=== PATIENT | male | born 1970 | race African-American/Black ===

== ENCOUNTER 2016-11-13 05:28 | Day surgery (SDC) | payer MEDICAID ==
[~2016-11-13] VITALS: Ht 165.1 cm; Wt 65.8 kg
[~2016-11-13 05:28] MED LIST: NORCO 7.5/325 T1 TA1 PO; PERCOCET 10/3251 TA1 PO
[2016-11-13 13:52] VITALS: BP 120/82; Ht 165.1 cm; Wt 65.8 kg
--- NOTE | 2016-11-13 18:40 | NUR ---
1745 IV DC WITH CATHER TIP INTACT
--- NOTE | 2016-12-18 09:40 | HP ---
PATIENT: KAREN LONG MEDICAL RECORD: [id number] ACCOUNT: [id number] LOCATION:[facility] : 66 ADMISSION DATE: 11/13/16 HISTORY AND PHYSICAL EXAMINATION The patient has an umbilical hernia, which is reducible, but is painful. It is very small. I am going to plan to close it without mesh. The patient also desires screening colonoscopy. He has had no abdominal pain other than at the hernia. No rectal bleeding. There is a history and physical on the chart; however, it is . The history and physical examination is unchanged from his visit to see me in the office. The risks, possible complications and alternatives to procedure were explained to the patient. He elects to proceed. TRANSINT:[id number] Voice Confirmation ID: [id number] DOCUMENT ID: [id number] JULIA CASTANEDA MD at 0940 CC: MAYE VALVERDE DO [id number] DICTATION DATE: 11/13/16 1518 LOGGING ENGINEER: 11/13/16 1635 [facility] 11/13/16 [address] [place] [address]
--- NOTE | 2016-12-18 09:40 | OP ---
PATIENT NAME: KAREN LONG MEDICAL RECORD: [id number] :66 LOCATION:D.[facility] ADMISSION DATE: SURGEON: JERZY CASTANEDA MD DATE OF OPERATION: 11/13/2016 PREOPERATIVE DIAGNOSES: 1. Symptomatic umbilical hernia. 2. Desires screening colonoscopy. POSTOPERATIVE DIAGNOSES: 1. Symptomatic umbilical hernia. 2. Desires screening colonoscopy. 3. Three sessile colon polyps ranging in size up to 1.1 cm. One of these polyps, the proximal most was semi-pedunculated. PROCEDURE: 1. Open umbilical hernia repair without mesh. 2. Total colonoscopy to cecum. 3. Hot biopsy forceps polypectomies times 3. SURGEON: Jerzy Castaneda MD HORSE RACE STARTER: None. BLOOD LOSS: Minimal. ANESTHESIA: General. COMPLICATIONS: None. The risks, possible complications and alternatives to procedure were explained to the patient. He elects to proceed. I saw the patient in the holding area. We discussed the planned operative procedure. OPERATIVE COURSE: The patient was conveyed to the operating room electively on 11/13/2016. General anesthesia was induced by the anesthesia staff. The patient was positioned supine. An incision was accomplished within the umbilicus. I dissected down to non-incarcerated adipose tissue. Some of this was excised. I then sharply cleaned the hernia defect from overlying connective tissue. I then performed a bsmi-wcyg-nfvwh type repair utilizing a single horizontal mattress 0 Surgidac suture. I then oversewed this repair with a vtpzdw-xs-wqjse 0 Vicryl suture. The umbilicus was tacked down to the underlying repair with 3-0 Vicryl. The umbilical skin was approximated with multiple interrupted 4-0 Vicryl Rapide sutures. A sterile dressing was applied. The patient was then positioned on the side in a Ellsworth position. A digital rectal examination was performed. It revealed prostate that was without nodules and was not enlarged. A colonoscope was inserted through the anus. It was easily advanced to the cecum. The prep was excellent. I slowly withdrew the endoscope. I irrigated and aspirated extensively. I dragged the folds. The pullback was greater than a 14-minute pullback. I utilized direct imaging as well as narrow band imaging. Three polyps were removed. One of these was a perianal polyp. These were removed utilizing hot biopsy forceps polypectomy OPERATIVE REPORT [id number] LONG,KAREN L technique. I then unretroflexed the scope and removed it under direct vision. I will see the patient in my office in 2-3 weeks. We will review the results of the biopsies at that time. It is very likely that one of these polyps is adenomatous and that the patient will require surveillance colonoscopies in the future. TRANSINT:[id number] Voice Confirmation ID: [id number] DOCUMENT ID: [id number] JERZY CASTANEDA MD at 0940 CC: MAYE VALVERDE DO [id number] DICTATION DATE: 11/13/16 1630 SPLUNK DASHBOARD DEVELOPER: 11/13/16 2342 [facility] 11/13/16 [facility] [address] [place] [address]
== END 2016-11-13 18:10 | disposition home or self-care (01) ==
LOC: D.OPS 05:28 → D.PAN 13:30 → D.OPS 14:30 → D.PAN 14:30 → D.OPS 15:30 → D.PAN 15:30 → D.OPS 18:10
DX: Z12.11 Encounter for screening for malignant neoplasm of colon (principal); D12.5 Benign neoplasm of sigmoid colon; K63.5 Polyp of colon; K62.1 Rectal polyp; K42.9 Umbilical hernia without obstruction or gangrene

== ENCOUNTER → 2016-12-01 14:01 | Outpatient (CLI) | payer MEDICAID ==
[2016-11-13 13:52] VITALS: BMI 24.1
== END | disposition home or self-care (01) ==
LOC: D.MRI 14:00
DX: R22.42 Localized swelling, mass and lump, left lower limb (principal)

== ENCOUNTER 2016-12-23 09:56 | Emergency (ER) | payer MEDICAID ==
[2016-11-13 13:52] VITALS: BMI 24.1
== END 2016-12-23 10:43 | disposition home or self-care (01) ==
LOC: D.ER 09:56
DX: H00.014 Hordeolum externum left upper eyelid (principal)

== ENCOUNTER 2017-01-28 15:00 | Emergency (ER) | payer MEDICAID ==
[2016-11-13 13:52] VITALS: BMI 24.1
[2017-01-28 15:53] LABS: BASOPHILS 0.6 % (0-2); EOSINOPHILS 2.2 % (0-7); HEMATOCRIT 42.4 % (42.0-54.0); IMMATURE GRANULOCYTES 0.2 % (0-5); LYMPHOCYTES 25.2 % (15-50); MCH 32.3 pg (26.0-34.0); MCV 97.7 fL (80.0-100.0); MEAN PLATELET VOLUME 10.3 fL (7.4-10.4); MONOCYTES 9.2 % (2-11); NEUTROPHILS 62.6 % (40-80); PLATELET COUNT 303 10x3/uL (130-400); RBC 4.34 10x6/uL (4.20-6.10); RDW 11.9 % (11.5-14.5); WBC 5.4 10x3/uL (4.8-10.8)
[2017-01-28 16:11] LABS: ALKALINE PHOSPHATASE 69 U/L (46-116); ALT (SGPT) 27 U/L (10-68); BILIRUBIN - TOTAL 0.27 mg/dL (0.2-1.3); CALC OSMOLALITY 279 mosm/kg (275-300); CALCIUM 9.1 mg/dL (8.5-10.1); CARBON DIOXIDE 31.8 mmol/L (21.0-32.0); CHLORIDE - SERUM 105 mmol/L (98-107); CREATININE - SERUM 1.1 mg/dL (0.6-1.3); GLUCOSE 106 mg/dL (74-106); POTASSIUM - SERUM 4.6 mmol/L (3.5-5.1); PROTEIN - SERUM 7.3 g/dL (6.4-8.2); SODIUM 140 mmol/L (136-145); UREA NITROGEN 16 mg/dL (7-18); eGFR NON AFRICAN AMERICAN 75 mL/min (90-120)
== END 2017-01-28 16:43 | disposition left against medical advice (07) ==
LOC: D.ER 15:00
PROVIDERS: Emergency Medicine
DX: R10.30 Lower abdominal pain, unspecified (principal)

== ENCOUNTER → 2017-05-26 15:00 | Outpatient (CLI) | payer MEDICAID ==
[2016-11-13 13:52] VITALS: BMI 24.1
== END | disposition home or self-care (01) ==
LOC: D.MRI 15:00
DX: M25.561 Pain in right knee (principal)

== ENCOUNTER 2017-06-18 07:15 | Day surgery (SDC) | payer MEDICAID ==
[2017-06-18 07:49] VITALS: BP 107/62; BMI 24.1
[2017-06-18] MEDS ORDERED: PERCOCET 7.5/321 TAB PO (09:23)
[2017-06-18] MEDS ORDERED: TORADOL10 MG PO (09:24)
--- NOTE | 2017-06-18 13:08 | NUR ---
1100 IV DC WITH CATHER TIP INTACT
--- NOTE | 2017-06-22 07:05 | OP ---
PATIENT NAME: KAREN DEL REAL MEDICAL RECORD: [id number] :66 LOCATION:[facility] ADMISSION DATE: SURGEON: KEENAN PARADA DO DATE OF OPERATION: 06/18/2017 PREOPERATIVE DIAGNOSIS: Right knee medial meniscal tear. POSTOPERATIVE DIAGNOSIS: Right knee medial meniscal tear. PROCEDURE PERFORMED: Right knee arthroscopy with partial medial meniscectomy. INDICATIONS: Mr. Del Real is a 47-year-old male that has had right knee pain for quite sometime and it has been bothering him while working and it swells on him quite often. This has been going on for months. He had an MRI, which demonstrated a medial meniscal tear in the posterior horn, it was complex. He was seen in my office and consented for surgery. He understood the risks and benefits. SURGEON: Keenan Parada DO MANAGER ENTERPRISE CONTENT MANAGEMENT: Anila Covington advanced nurse practitioner DESCRIPTION OF PROCEDURE: The patient was taken to the operative suite, placed in supine position, given general anesthetic, given 2 grams of Ancef preoperatively. The right knee was prepped and draped in sterile fashion. A time-out was performed and everyone was in agreeance with correct patient, site, and side. Once this was done, the knee was brought into flexed position and the proposed portal sites were injected with 0.25% Marcaine with 1% epinephrine with 4.5 mL in each portal site, the inferior, anterior, medial, and lateral portals. The lateral portal was then established with an 11-blade scalpel and the trocar was entered into the knee. The knee was extended and placed in suprapatellar pouch. The scope was then entered into that. The diagnostic arthroscopy was done. Again, there were no loose bodies in the suprapatellar pouch. Patella seemed to be in good shape with no chondromalacia. The lateral gutter was viewed and no loose bodies were seen. Medial gutter was viewed and no loose bodies. The knee was then flexed and the medial compartment was entered. The medial portal was then established with an 18-gauge spinal needle and an 11-blade scalpel. Probe was entered and the posterior horn of the medial meniscus was probed and seemed to be very loose indicating a tear that was seen on the MRI. An upbiter was then entered into the medial portal and the tear was trimmed back to a stable position and the shaver was used to remove all excess loose bodies and any other fraying that was on the meniscus. Once this was done, the meniscus was probed and seemed to be in stable condition and no longer subluxing, it was not moving. The probe was then entered into the medial portal and the ACL was probed and seen to be very stable and taut. The probe was then placed into the lateral compartment. The knee was in qcquvs-rn-pbon. The lateral meniscus was probed and seen to be very stable, no tears. Once that was done, pictures were taken. The patella was tracking very well in the trochlea. The scope was then placed in suprapatellar pouch. Again, the suction was turned on. Excess fluid was removed from the knee and the scope was removed. The portal sites were then closed with 4-0 Monocryl inverted interrupted fashion, single stitch in each portal. A Steri-Strip was placed over with Adaptic, 4 x 4, ABD, Webril, and Quincy wrap on the knee and then a stocking up to the knee was placed on the patient. Blood loss was minimal. He was awakened and taken to recovery in stable condition. OPERATIVE REPORT [id number] KAREN DEL REAL TRANSINT:[id number] Voice Confirmation ID: [id number] DOCUMENT ID: [id number] KEENAN PARADA DO at 0705 CC: [id number] DICTATION DATE: 06/18/17929 HORSE IDENTIFIER: 06/18/17 1249 [facility] 06/18/[address] [address]
== END 2017-06-18 11:30 | disposition home or self-care (01) ==
LOC: D.OPS 07:15 → D.PAN 08:20 → D.OPS 08:30
DX: S83.241A Other tear of medial meniscus, current injury, right knee, initial encounter (principal); F17.200 Nicotine dependence, unspecified, uncomplicated; Z01.812 Encounter for preprocedural laboratory examination

== ENCOUNTER 2017-08-12 21:54 | Emergency (ER) | payer MEDICAID ==
[~2017-08-12 21:54] MED LIST changes: +PERCOCET 7.5/321 TAB PO; +TORADOL10 MG PO
== END 2017-08-12 22:48 | disposition home or self-care (01) ==
LOC: D.ER 21:54
DX: M25.561 Pain in right knee (principal); Z98.890 Other specified postprocedural states; F17.200 Nicotine dependence, unspecified, uncomplicated

== ENCOUNTER 2017-08-23 09:58 | Emergency (ER) | payer MEDICAID | END 2017-08-23 11:24 | disposition home or self-care (01) | LOC: D.ER 09:58 | DX: M25.561 Pain in right knee (principal); Z98.890 Other specified postprocedural states ==

== ENCOUNTER 2017-11-11 12:41 | Emergency (ER) | payer MEDICAID ==
[2017-11-11 13:20] LABS: BASOPHILS 0.6 % (0-2); EOSINOPHILS 4.1 % (0-7); HEMATOCRIT 40.7 % (42.0-54.0); HEMOGLOBIN 13.6 g/dL (13.5-17.5); IMMATURE GRANULOCYTES 0.2 % (0-5); MCH 32.2 pg (26.0-34.0); MCHC 33.4 g/dL (31.0-37.0); MCV 96.2 fL (80.0-100.0); MEAN PLATELET VOLUME 10.2 fL (7.4-10.4); NEUTROPHILS 50.1 % (40-80); PLATELET COUNT 276 10x3/uL (130-400); RBC 4.23 10x6/uL (4.20-6.10); RDW 11.9 % (11.5-14.5); WBC 4.7 10x3/uL (4.8-10.8)
[2017-11-11 13:35] LABS: ALBUMIN 3.7 g/dL (3.4-5.0); BILIRUBIN - TOTAL 0.3 mg/dL (0.2-1.3); CALCIUM 8.4 mg/dL (8.5-10.1); CARBON DIOXIDE 25.9 mmol/L (21.0-32.0); CREATININE - SERUM 1.2 mg/dL (0.6-1.3); POTASSIUM - SERUM 3.9 mmol/L (3.5-5.1)
[2017-11-11 13:37] LABS: APPEARANCE CLEAR (CLEAR); BILIRUBIN NEGATIVE (NEGATIVE); COLOR YELLOW (YELLOW); GLUCOSE NEGATIVE (NEGATIVE); KETONE NEGATIVE (NEGATIVE); NITRITE NEGATIVE (NEGATIVE); PROTEIN NEGATIVE (NEGATIVE); SPECIFIC GRAVITY 1.015 (1.005-1.020); UROBILINOGEN NORMAL (NORMAL)
== END 2017-11-11 15:39 | disposition home or self-care (01) ==
LOC: D.ER 12:41
PROVIDERS: Emergency Medicine
DX: R10.9 Unspecified abdominal pain (principal); F17.200 Nicotine dependence, unspecified, uncomplicated

== ENCOUNTER 2017-12-21 05:27 | Day surgery (SDC) | payer MEDICAID ==
[~2017-12-21] VITALS: Ht 165.1 cm; Wt 68.2 kg
--- NOTE | ~2017-12-21 | OP ---
PATIENT NAME: KAREN LONG MEDICAL RECORD: [id number] :66 LOCATION:D.OPS ADMISSION DATE: SURGEON: JERZY CASTANEDA MD DATE OF OPERATION: 12/21/2017 PREOPERATIVE DIAGNOSIS: History of colon polyps, in need of surveillance colonoscopy. POSTOPERATIVE DIAGNOSES: History of colon polyps, in need of surveillance colonoscopy with 2 new polyps, sessile, one was a 9 mm polyp and the other was a 1.1 cm polyp. PROCEDURES: 1. Total colonoscopy to cecum. 2. Hot biopsy forceps polypectomies times 1. SURGEON: Jerzy Castaneda MD CHEFS: None. BLOOD LOSS: Minimal. ANESTHESIA: IV sedation. COMPLICATIONS: None. The risks, possible complications and alternatives to procedure were explained to the patient. A consent form was signed. ENDOSCOPIC COURSE: The patient was conveyed to the endoscopy suite electively on 12/21/2017. IV sedation was induced by the anesthesia staff. The patient was placed in the Ellsworth position. A digital rectal examination was performed. A colonoscope was inserted through the anus. It was easily advanced to the cecum. The prep was adequate. I slowly withdrew the endoscope. I dragged the folds. The pullback was greater than a 14-minute pullback. Two polyps were noted and they were adjacent to each other. Both were removed utilizing the hot biopsy forceps polypectomy technique. I then placed both of these polyps in the same container. I withdrew into the rectum. A retroflexed view was obtained in the rectum. It revealed enlarged internal hemorrhoids. I then unretroflexed the scope and removed it under direct vision. I will plan to see the patient in my office in 2-3 weeks to discuss the results of the biopsies. I will plan for his next surveillance colonoscopy to take place in 3 years. TRANSINT:[id number] Voice Confirmation ID: [id number] DOCUMENT ID: [id number] OPERATIVE REPORT [id number] KAREN LONG ROBERT MD at 1518 CC: [id number] DICTATION DATE: 12/21/17 1038 ACLS SPECIALIST: 12/21/17 1052 [facility] 12/21/17 [place] [address]
--- NOTE | ~2017-12-21 | HP ---
PATIENT: KAREN LONG MEDICAL RECORD: [id number] ACCOUNT: [id number] LOCATION:[facility] : 66 ADMISSION DATE: 12/21/17 HISTORY AND PHYSICAL EXAMINATION CHIEF COMPLAINT: Here for colonoscopy. HISTORY OF PRESENT ILLNESS: The patient did a split prep last night. It sounds like he got started kind of late. He has had a history of colon polyps. He is here to undergo a surveillance colonoscopy. ALLERGIES: No known drug allergies. HOME MEDICATIONS: None. SOCIAL HISTORY: Ex-smoker. PAST MEDICAL AND SURGICAL HISTORY: History of colon polyps. REVIEW OF SYSTEMS: Negative for diabetes or thyroid problems. Negative for renal disease or hepatitis. PHYSICAL EXAMINATION: GENERAL: The patient does not appear acutely ill. He does not appear chronically ill. VITAL SIGNS: Reviewed. EARS: External ears appear normal. EYES: Extraocular movements are intact. NECK: Trachea is midline. CHEST: No intercostal retractions. PULMONARY: Nonlabored, no stridor. IMPRESSION: History of colon polyps. PLAN: Surveillance colonoscopy. TRANSINT:[id number] Voice Confirmation ID: [id number] DOCUMENT ID: [id number] JULIA CASTANEDA MD at 1518 CC: MAYE VALVERDE DO [id number] DICTATION DATE: 12/21/17 0846 VICE PRESIDENT RISK MANAGEMENT: 12/21/17 0914 [facility] 12/21/17 [address] [place] [address]
[2017-12-21 06:29] VITALS: Ht 165.1 cm; Wt 68.2 kg
== END 2017-12-21 10:29 | disposition home or self-care (01) ==
LOC: D.OPS 05:27
DX: Z12.11 Encounter for screening for malignant neoplasm of colon (principal); Z86.010 Personal history of colon polyps; K63.5 Polyp of colon; K64.8 Other hemorrhoids; Z01.812 Encounter for preprocedural laboratory examination

== ENCOUNTER 2018-02-22 09:03 | Emergency (ER) | payer MEDICAID ==
[~2018-02-22] VITALS: Ht 165.1 cm; Wt 65.9 kg
[2018-02-22 09:09] VITALS: Ht 165.1 cm; Wt 65.9 kg
[2018-02-22] MEDS ORDERED: EC-NAPROSYN500 MG PO (10:37)
[2018-02-22 11:32] VITALS: BP 105/73
== END 2018-02-22 11:14 | disposition home or self-care (01) ==
LOC: D.ER 09:03
DX: S90.32XA Contusion of left foot, initial encounter (principal); V09.20XA Pedestrian injured in traffic accident involving unspecified motor vehicles, initial encounter; Y93.01 Activity, walking, marching and hiking; Y92.481 Parking lot as the place of occurrence of the external cause; F17.200 Nicotine dependence, unspecified, uncomplicated

== ENCOUNTER 2018-10-26 21:39 | Inpatient (IN) | payer MEDICAID ==
[~2018-10-26] VITALS: Ht 165.1 cm; Wt 59.0 kg
[~2018-10-26 21:39] MED LIST changes: +EC-NAPROSYN500 MG PO
[2018-10-26 22:50] LABS: BASOPHILS 0.3 % (0-2); EOSINOPHILS 0.5 % (0-7); HEMATOCRIT 46.5 % (42.0-54.0); HEMOGLOBIN 16.1 g/dL (13.5-17.5); IMMATURE GRANULOCYTES 0.3 % (0-5); LYMPHOCYTES 19.5 % (15-50); MCH 32.9 pg (26.0-34.0); MCHC 34.6 g/dL (31.0-37.0); MCV 94.9 fL (80.0-100.0); MEAN PLATELET VOLUME 9.5 fL (7.4-10.4); MONOCYTES 8.8 % (2-11); NEUTROPHILS 70.6 % (40-80); WBC 10.1 10x3/uL (4.8-10.8)
[2018-10-26 22:53] LABS: APPEARANCE CLEAR (CLEAR); BILIRUBIN NEGATIVE (NEGATIVE); COLOR YELLOW (YELLOW); GLUCOSE NEGATIVE (NEGATIVE); KETONE SMALL mg/dL (NEGATIVE); NITRITE NEGATIVE (NEGATIVE); PROTEIN NEGATIVE (NEGATIVE); UROBILINOGEN NORMAL (NORMAL)
[2018-10-26 22:55] LABS: PLATELET COUNT 558 10x3/uL (130-400)
[2018-10-26 23:07] LABS: ALBUMIN 4.3 g/dL (3.4-5.0); ALKALINE PHOSPHATASE 94 U/L (46-116); ALT (SGPT) 27 U/L (10-68); BILIRUBIN - TOTAL 0.68 mg/dL (0.2-1.3); CALC OSMOLALITY 287 mosm/kg (275-300); CALCIUM 9.8 mg/dL (8.5-10.1); CARBON DIOXIDE 36.6 mmol/L (21.0-32.0); CHLORIDE - SERUM 95 mmol/L (98-107); CREATININE - SERUM 1.4 mg/dL (0.6-1.3); GLUCOSE 136 mg/dL (74-106); POTASSIUM - SERUM 3.2 mmol/L (3.5-5.1); PROTEIN - SERUM 9.3 g/dL (6.4-8.2); SODIUM 142 mmol/L (136-145); UREA NITROGEN 22 mg/dL (7-18); eGFR NON AFRICAN AMERICAN 57 mL/min (90-120)
[2018-10-26 23:11] LABS: AMYLASE - SERUM 83 U/L (25-115); LIPASE 253 U/L (73-393)
[2018-10-26 23:16] LABS: TROPONIN-I < 0.017 ng/mL (0.000-0.060)
[2018-10-26 23:47] VITALS: BP 133/91
[2018-10-27] VITALS (7 sets, daily range): BP systolic 108–124; BP diastolic 67–89; Ht 165.1 cm; Wt 59.0 kg
[2018-10-27 10:27] LABS: HEMATOCRIT 38.3 % (42.0-54.0); LYMPHOCYTES 18.1 % (15-50); MCH 32.5 pg (26.0-34.0); MCHC 33.9 g/dL (31.0-37.0); MCV 95.8 fL (80.0-100.0); MEAN PLATELET VOLUME 8.8 fL (7.4-10.4); NEUTROPHILS 70.5 % (40-80); RDW 12.2 % (11.5-14.5); WBC 9.9 10x3/uL (4.8-10.8)
[2018-10-27 10:36] LABS: PLATELET COUNT 434 10x3/uL (130-400)
[2018-10-28 03:38] VITALS: BP 111/66
[2018-10-28 06:19] LABS: BASOPHILS 0.4 % (0-2); EOSINOPHILS 2.5 % (0-7); HEMOGLOBIN 10.6 g/dL (13.5-17.5); IMMATURE GRANULOCYTES 0.2 % (0-5); LYMPHOCYTES 30.4 % (15-50); MCH 31.6 pg (26.0-34.0); MCHC 32.1 g/dL (31.0-37.0); MEAN PLATELET VOLUME 9.7 fL (7.4-10.4); MONOCYTES 8.1 % (2-11); NEUTROPHILS 58.4 % (40-80); PLATELET COUNT 387 10x3/uL (130-400); RBC 3.35 10x6/uL (4.20-6.10); RDW 11.9 % (11.5-14.5); WBC 8.1 10x3/uL (4.8-10.8)
[2018-10-28 06:22] LABS: MCV 98.5 fL (80.0-100.0)
[2018-10-28 08:34] VITALS: BP 108/70
[2018-10-28 08:48] LABS: ALKALINE PHOSPHATASE 54 U/L (46-116); CALCIUM 7.7 mg/dL (8.5-10.1); CHLORIDE - SERUM 103 mmol/L (98-107); SODIUM 135 mmol/L (136-145); UREA NITROGEN 19 mg/dL (7-18)
[2018-10-28 08:49] LABS: ALBUMIN 2.6 g/dL (3.4-5.0); ALT (SGPT) 16 U/L (10-68); CALC OSMOLALITY 270 mosm/kg (275-300); CARBON DIOXIDE 23.1 mmol/L (21.0-32.0); CREATININE - SERUM 0.8 mg/dL (0.6-1.3); GLUCOSE 85 mg/dL (74-106); POTASSIUM - SERUM 4.9 mmol/L (3.5-5.1); PROTEIN - SERUM 5.5 g/dL (6.4-8.2); eGFR NON AFRICAN AMERICAN > 90 mL/min (90-120)
[2018-10-28 11:40] VITALS: BP 107/63
[2018-10-28 16:00] VITALS: BP 104/64
[2018-10-28 19:34] VITALS: BP 100/72
[2018-10-28 23:35] VITALS: BP 109/60
[2018-10-29 04:00] VITALS: BP 120/60
[2018-10-29 06:10] LABS: BASOPHILS 0.3 % (0-2); EOSINOPHILS 4.1 % (0-7); HEMATOCRIT 32.5 % (42.0-54.0); HEMOGLOBIN 10.8 g/dL (13.5-17.5); IMMATURE GRANULOCYTES 0.2 % (0-5); MCH 31.8 pg (26.0-34.0); MCHC 33.2 g/dL (31.0-37.0); MCV 95.6 fL (80.0-100.0); MEAN PLATELET VOLUME 9.6 fL (7.4-10.4); MONOCYTES 7.3 % (2-11); NEUTROPHILS 53.1 % (40-80); PLATELET COUNT 393 10x3/uL (130-400); RDW 11.6 % (11.5-14.5); WBC 5.9 10x3/uL (4.8-10.8)
[2018-10-29 06:40] LABS: ALBUMIN 2.6 g/dL (3.4-5.0); ALKALINE PHOSPHATASE 54 U/L (46-116); ALT (SGPT) 16 U/L (10-68); BILIRUBIN - TOTAL 0.34 mg/dL (0.2-1.3); CALC OSMOLALITY 273 mosm/kg (275-300); CALCIUM 8.3 mg/dL (8.5-10.1); CARBON DIOXIDE 26.4 mmol/L (21.0-32.0); CHLORIDE - SERUM 104 mmol/L (98-107); CREATININE - SERUM 0.8 mg/dL (0.6-1.3); GLUCOSE 79 mg/dL (74-106); POTASSIUM - SERUM 4.6 mmol/L (3.5-5.1); PROTEIN - SERUM 6.1 g/dL (6.4-8.2); SODIUM 137 mmol/L (136-145); UREA NITROGEN 15 mg/dL (7-18); eGFR NON AFRICAN AMERICAN > 90 mL/min (90-120)
[2018-10-29 08:39] VITALS: BP 107/66
[2018-10-29 12:00] VITALS: BP 113/67
[2018-10-29 16:00] VITALS: BP 125/78
[2018-10-29 20:00] VITALS: BP 113/74
[2018-10-30] VITALS: BP 105/69
[2018-10-30 04:00] VITALS: BP 100/55
[2018-10-30 05:10] LABS: BASOPHILS 0.4 % (0-2); EOSINOPHILS 3.8 % (0-7); IMMATURE GRANULOCYTES 0.1 % (0-5); LYMPHOCYTES 27.8 % (15-50); MCH 31.7 pg (26.0-34.0); MCHC 33.3 g/dL (31.0-37.0); MCV 95.2 fL (80.0-100.0); MEAN PLATELET VOLUME 9.4 fL (7.4-10.4); MONOCYTES 6.3 % (2-11); NEUTROPHILS 61.6 % (40-80); PLATELET COUNT 362 10x3/uL (130-400); RBC 3.15 10x6/uL (4.20-6.10); RDW 11.6 % (11.5-14.5); WBC 7.2 10x3/uL (4.8-10.8)
[2018-10-30 05:24] LABS: ALBUMIN 2.6 g/dL (3.4-5.0); ALKALINE PHOSPHATASE 49 U/L (46-116); ALT (SGPT) 14 U/L (10-68); BILIRUBIN - TOTAL 0.33 mg/dL (0.2-1.3); CALC OSMOLALITY 274 mosm/kg (275-300); CARBON DIOXIDE 29.5 mmol/L (21.0-32.0); CHLORIDE - SERUM 102 mmol/L (98-107); CREATININE - SERUM 0.9 mg/dL (0.6-1.3); GLUCOSE 92 mg/dL (74-106); POTASSIUM - SERUM 4.6 mmol/L (3.5-5.1); PROTEIN - SERUM 6.1 g/dL (6.4-8.2); SODIUM 136 mmol/L (136-145); eGFR NON AFRICAN AMERICAN > 90 mL/min (90-120)
[2018-10-30 05:25] LABS: UREA NITROGEN 20 mg/dL (7-18)
[2018-10-30 07:55] VITALS: BP 100/65
[2018-10-30 13:00] VITALS: BP 101/70
[2018-10-30 16:00] VITALS: BP 104/74
[2018-10-30 20:00] VITALS: BP 107/74
[2018-10-31 04:00] VITALS: BP 96/65
[2018-10-31 04:08] LABS: BASOPHILS 0.5 % (0-2); HEMATOCRIT 29.4 % (42.0-54.0); LYMPHOCYTES 36.2 % (15-50); MCH 32.1 pg (26.0-34.0); MCV 94.2 fL (80.0-100.0); MEAN PLATELET VOLUME 9.5 fL (7.4-10.4); MONOCYTES 9.9 % (2-11); NEUTROPHILS 47.4 % (40-80); PLATELET COUNT 349 10x3/uL (130-400); RBC 3.12 10x6/uL (4.20-6.10); RDW 11.5 % (11.5-14.5); WBC 5.6 10x3/uL (4.8-10.8)
[2018-10-31 04:39] LABS: ALBUMIN 2.6 g/dL (3.4-5.0); ALKALINE PHOSPHATASE 47 U/L (46-116); ALT (SGPT) 15 U/L (10-68); BILIRUBIN - TOTAL 0.57 mg/dL (0.2-1.3); CALC OSMOLALITY 273 mosm/kg (275-300); CALCIUM 8.2 mg/dL (8.5-10.1); CARBON DIOXIDE 27.1 mmol/L (21.0-32.0); CHLORIDE - SERUM 103 mmol/L (98-107); CREATININE - SERUM 0.8 mg/dL (0.6-1.3); GLUCOSE 99 mg/dL (74-106); POTASSIUM - SERUM 4.5 mmol/L (3.5-5.1); SODIUM 137 mmol/L (136-145); eGFR NON AFRICAN AMERICAN > 90 mL/min (90-120)
[2018-10-31 04:44] LABS: UREA NITROGEN 13 mg/dL (7-18)
[2018-10-31 08:04] VITALS: BP 103/71
[2018-10-31 11:55] VITALS: BP 94/61
--- NOTE | 2018-10-31 12:13 | MORECARE ---
CASE MANAGEMENT DISCHARGE SUMMARY PATIENT: KAREN LONG UNIT: [id number] ADM DATE: 10/27/18 AGE: 48 : 66 SEX: M ROOM/BED: D.2209 AUTHOR: MARIAJOSE SWIFT PHYSICIAN: REFERRING PHYSICIAN: TYLER HANSEN MD DATE OF SERVICE: 10/31/18 Discharge Plan Patient Name: KAREN LONG Facility: [facility]:[place] : 1970 Planned Disposition: Home Anticipated Discharge Date: Discharge Date: Expected LOS: Initial Reviewer: [email or web address] Initial Review Date: 10/27/2018 Generated: 10/31/18 1:12 pm DCPIA - Discharge Planning Initial Assessment Updated by [email or web address]: Gina Dumont on 10/31/18 12:12 pm * Is the patient Alert and Oriented? Yes * How many steps to enter\exit or inside your home? * PCP TIFFANIEO * Pharmacy [facility] * Preadmission Environment Home with Family * ADLs Independent * Equipment None * List name and contact numbers for known caregivers / representatives who currently or will assist patient after discharge: ALPHONSO (GIRLFRIEND) [phone] * Verbal permission to speak to the caregivers and representatives has been obtained from the patient. N/A * Community resources currently utilized None * Additional services required to return to the preadmission environment? No * Can the patient safely return to the preadmission environment? Yes * Has this patient been hospitalized within the prior 30 days at any hospital? Yes Patient Name: KAREN LONG Page 19344 at 1213 All edits/amendments must be made on the electronic document DICTATION DATE: 10/31/18 121 ACCOUNTS PAYABLE ACCOUNTANT: CONNER 10/31/18 1212 RPT#: [id number] DC DATE: STATUS: ADM IN [facility] [address] [place] [address] END OF REPORT
--- NOTE | 2018-10-31 12:19 | MORECARE ---
CASE MANAGEMENT DISCHARGE SUMMARY PATIENT: KAREN LONG UNIT: [id number] ADM DATE: 10/27/18 AGE: 48 : 66 SEX: M ROOM/BED: D.2209 AUTHOR: JENIFFERDOC PHYSICIAN: REFERRING PHYSICIAN: TYLER HANSEN MD DATE OF SERVICE: 10/31/18 Discharge Plan Patient Name: KAREN LONG Facility: [facility]:[place] : 1970 Planned Disposition: Home Anticipated Discharge Date: Discharge Date: Expected LOS: Initial Reviewer: [email or web address] Initial Review Date: 10/27/2018 Generated: 10/31/18 1:19 pm Comments DCP- Discharge Planning Updated by [email or web address]: Gina Dumont on 10/31/18 11:[address] Patient Name: KAREN LONG Admission Status: ER Accout number: [id number] Admission Date: 10-27-2018 : 1970 Admission Diagnosis:UNSPECIFIED ABDOMINAL PAIN Attending: TYLER HANSEN Current LOS: 4 Anticipated DC Date: Planned Disposition: Home Primary Insurance: MEDICAID [place] Discharge Planning Comments: CM met with patient to assess discharge planning needs. He stated that he lives with a friend where he is independent with his care at home. His girlfriend, Daya will be the one to take him home when he is discharged. He denies any DME or home health needs at this time. His home is safe to return at discharge. CM will continue to follow and assist with DC planning as needed Design Release Engineer: Gina Dumont DCPIA - Discharge Planning Initial Assessment Updated by [email or web address]: Gina Dumont on 10/31/18 12:12 pm * Is the patient Alert and Oriented? Yes * How many steps to enter\exit or inside your home? * PCP TIFFANIEO * Pharmacy [facility] [address] * Preadmission Environment Home with Family * ADLs Independent * Equipment None * List name and contact numbers for known caregivers / representatives who currently or will assist patient after discharge: ALPHONSO (GIRLFRIEND) [phone] * Verbal permission to speak to the caregivers and representatives has been obtained from the patient. N/A * Community resources currently utilized None * Additional services required to return to the preadmission environment? No * Can the patient safely return to the preadmission environment? Yes * Has this patient been hospitalized within the prior 30 days at any hospital? Yes Last DP export: 10/31/18 11:12 a Patient Name: KAREN LONG Page 45232 at 1219 All edits/amendments must be made on the electronic document DICTATION DATE: 10/31/181217 FIELD ATTENDANT: CONNER 10/31/181217 RPT#: [id number] DC DATE: STATUS: ADM IN [facility] [address] [place] [address] END OF REPORT
[2018-10-31 15:45] VITALS: BP 99/59
[2018-10-31 20:00] VITALS: BP 108/62
[2018-11-01 04:00] VITALS: BP 108/61
[2018-11-01 04:42] LABS: BASOPHILS 0.7 % (0-2); EOSINOPHILS 7.2 % (0-7); HEMATOCRIT 27.1 % (42.0-54.0); HEMOGLOBIN 9.2 g/dL (13.5-17.5); IMMATURE GRANULOCYTES 0.2 % (0-5); MCH 32.1 pg (26.0-34.0); MCHC 33.9 g/dL (31.0-37.0); MCV 94.4 fL (80.0-100.0); MEAN PLATELET VOLUME 9.6 fL (7.4-10.4); MONOCYTES 9.9 % (2-11); PLATELET COUNT 355 10x3/uL (130-400); RBC 2.87 10x6/uL (4.20-6.10); RDW 11.5 % (11.5-14.5); WBC 5.6 10x3/uL (4.8-10.8)
[2018-11-01 05:13] LABS: ALBUMIN 2.4 g/dL (3.4-5.0); ALKALINE PHOSPHATASE 55 U/L (46-116); BILIRUBIN - TOTAL 0.14 mg/dL (0.2-1.3); CALC OSMOLALITY 273 mosm/kg (275-300); CALCIUM 7.6 mg/dL (8.5-10.1); CARBON DIOXIDE 23.8 mmol/L (21.0-32.0); CHLORIDE - SERUM 102 mmol/L (98-107); GLUCOSE 132 mg/dL (74-106); PROTEIN - SERUM 5.7 g/dL (6.4-8.2); SODIUM 136 mmol/L (136-145); UREA NITROGEN 13 mg/dL (7-18); eGFR NON AFRICAN AMERICAN 84 mL/min (90-120)
[2018-11-01 05:16] LABS: ALT (SGPT) 33 U/L (10-68); POTASSIUM - SERUM 3.6 mmol/L (3.5-5.1)
[2018-11-01 09:15] VITALS: BP 109/61
[2018-11-01 13:37] VITALS: BP 118/74
[2018-11-01 20:00] VITALS: BP 94/63
[2018-11-02] VITALS: BP 93/58
[2018-11-02 04:00] VITALS: BP 124/64
[2018-11-02 05:01] LABS: BASOPHILS 0.7 % (0-2); EOSINOPHILS 5.4 % (0-7); HEMATOCRIT 25.6 % (42.0-54.0); HEMOGLOBIN 8.5 g/dL (13.5-17.5); IMMATURE GRANULOCYTES 0.3 % (0-5); LYMPHOCYTES 37.3 % (15-50); MCH 31.5 pg (26.0-34.0); MCHC 33.2 g/dL (31.0-37.0); MCV 94.8 fL (80.0-100.0); MEAN PLATELET VOLUME 9.6 fL (7.4-10.4); NEUTROPHILS 47.3 % (40-80); PLATELET COUNT 355 10x3/uL (130-400); RDW 11.7 % (11.5-14.5); WBC 5.8 10x3/uL (4.8-10.8)
[2018-11-02 05:23] LABS: ALBUMIN 2.4 g/dL (3.4-5.0); ALKALINE PHOSPHATASE 50 U/L (46-116); BILIRUBIN - TOTAL 0.24 mg/dL (0.2-1.3); CALCIUM 7.7 mg/dL (8.5-10.1); CARBON DIOXIDE 25.4 mmol/L (21.0-32.0); CHLORIDE - SERUM 104 mmol/L (98-107); CREATININE - SERUM 0.9 mg/dL (0.6-1.3); GLUCOSE 106 mg/dL (74-106); POTASSIUM - SERUM 3.8 mmol/L (3.5-5.1); PROTEIN - SERUM 5.5 g/dL (6.4-8.2); SODIUM 138 mmol/L (136-145); eGFR NON AFRICAN AMERICAN > 90 mL/min (90-120)
[2018-11-02 05:26] LABS: ALT (SGPT) 24 U/L (10-68); CALC OSMOLALITY 277 mosm/kg (275-300); UREA NITROGEN 17 mg/dL (7-18)
[2018-11-02 10:25] VITALS: BP 103/55
[2018-11-02] MEDS ORDERED: PEPCID AC20 MG PO (11:02)
--- NOTE | 2018-11-02 11:25 | MORECARE ---
CASE MANAGEMENT DISCHARGE SUMMARY PATIENT: KAREN LONG UNIT: [id number] ADM DATE: 10/27/18 AGE: 48 : 66 SEX: M ROOM/BED: D.2209 AUTHOR: MARIAJOSE SWIFT PHYSICIAN: REFERRING PHYSICIAN: TYLER HANSEN MD DATE OF SERVICE: 11/02/18 Discharge Plan Patient Name: KAREN LONG Facility: [facility]:[place] : 1970 Planned Disposition: Home Anticipated Discharge Date: Discharge Date: Expected LOS: Initial Reviewer: [email or web address] Initial Review Date: 10/27/2018 Generated: 11/02/18 12:25 pm Comments DCP- Discharge Planning Updated by [email or web address]: Gina Dumont on 11/02/18 10:[address] Patient Name: KAREN LONG Encounter No: [id number] : 1970 Primary Insurance: MEDICAID [place] Anticipated DC Date: Planned Disposition: Home External Planned Provider: : DCP follow-up note: Patient and family in agreement with discharge plan. No changes to plan. Case management will follow and assist as needed. Gina Dumont DCP- Discharge Planning Updated by [email or web address]: Gina Dumont on 10/31/18 11:[address] Patient Name: KAREN LONG Admission Status: ER Accout number: [id number] Admission Date: 10-27-2018 : 1970 Admission Diagnosis:UNSPECIFIED ABDOMINAL PAIN Attending: TYLER HANSEN Current LOS: 4 Anticipated DC Date: Planned Disposition: Home Primary Insurance: MEDICAID [place] Discharge Planning Comments: CM met with patient to assess discharge planning needs. He stated that he lives with a friend where he is independent with his care at home. His girlfriend, Daya will be the one to take him home when he is discharged. He denies any DME or home health needs at this time. His home is safe to return at discharge. CM will continue to follow and assist with DC planning as needed Teaching Fellow: Gina Dumont DCPIA - Discharge Planning Initial Assessment Updated by [email or web address]: Gina Dumont on 10/31/18 12:12 pm * Is the patient Alert and Oriented? Yes * How many steps to enter\exit or inside your home? * PCP NICOLLE * Pharmacy [facility] [address] * Preadmission Environment Home with Family * ADLs Independent * Equipment None * List name and contact numbers for known caregivers / representatives who currently or will assist patient after discharge: ALPHONSO (GIRLFRIEND) [phone] * Verbal permission to speak to the caregivers and representatives has been obtained from the patient. N/A * Community resources currently utilized None * Additional services required to return to the preadmission environment? No * Can the patient safely return to the preadmission environment? Yes * Has this patient been hospitalized within the prior 30 days at any hospital? Yes Last DP export: 10/31/18 11:19 a Patient Name: KAREN LONG Page 25282 at 1125 All edits/amendments must be made on the electronic document DICTATION DATE: 11/02/18 112 MARKETING SUPPORT MANAGER: CONNER 11/02/18 112 RPT#: [id number] DC DATE: STATUS: ADM IN [facility] [address] [place] [address] END OF REPORT
--- NOTE | 2018-11-04 14:47 | MORECARE ---
CASE MANAGEMENT DISCHARGE SUMMARY PATIENT: KAREN LONG UNIT: [id number] ADM DATE: 10/27/18 AGE: 48 : 66 SEX: M ROOM/BED: D.2209 AUTHOR: MARIAJOSE SWIFT PHYSICIAN: REFERRING PHYSICIAN: TYLER HANSEN MD DATE OF SERVICE: 11/04/18 Discharge Plan Patient Name: KAREN LONG Facility: [facility]:[place] : 1970 Planned Disposition: Home Anticipated Discharge Date: Discharge Date: 11/02/2018 Expected LOS: 0 Initial Reviewer: [email or web address] Initial Review Date: 10/27/2018 Generated: 11/04/18 3:47 pm Comments DCP- Discharge Planning Updated by [email or web address]: Gina Dumont on 11/02/18 10:[address] Patient Name: KAREN LONG Encounter No: [id number] : 1970 Primary Insurance: MEDICAID [place] Anticipated DC Date: Planned Disposition: Home External Planned Provider: : DCP follow-up note: Patient and family in agreement with discharge plan. No changes to plan. Case management will follow and assist as needed. Gina Dumont DCP- Discharge Planning Updated by [email or web address]: Gina Dumont on 10/31/18 11:[address] Patient Name: KAREN LONG Admission Status: ER Accout number: [id number] Admission Date: 10-27-2018 : 1970 Admission Diagnosis:UNSPECIFIED ABDOMINAL PAIN Attending: TYLER HANSEN Current LOS: 4 Anticipated DC Date: Planned Disposition: Home Primary Insurance: MEDICAID [place] Discharge Planning Comments: CM met with patient to assess discharge planning needs. He stated that he lives with a friend where he is independent with his care at home. His girlfriend, Daya will be the one to take him home when he is discharged. He denies any DME or home health needs at this time. His home is safe to return at discharge. CM will continue to follow and assist with DC planning as needed Tar And Ammonia Pump Operator: Gina Dumont DCPIA - Discharge Planning Initial Assessment Updated by [email or web address]: Gina Dumont on 10/31/18 12:12 pm * Is the patient Alert and Oriented? Yes * How many steps to enter\exit or inside your home? * PCP NICOLLE * [facility] [address] * Preadmission Environment Home with Family * ADLs Independent * Equipment None * List name and contact numbers for known caregivers / representatives who currently or will assist patient after discharge: ALPHONSO (GIRLFRIEND) [phone] * Verbal permission to speak to the caregivers and representatives has been obtained from the patient. N/A * Community resources currently utilized None * Additional services required to return to the preadmission environment? No * Can the patient safely return to the preadmission environment? Yes * Has this patient been hospitalized within the prior 30 days at any hospital? Yes Last DP export: 11/02/18 10:25 a Patient Name: KAREN LONG Page 86006 at 1447 All edits/amendments must be made on the electronic document DICTATION DATE: 11/04/181446 HANDMADE TILE ARTIST: CONNER 11/04/181446 RPT#: [id number] DC DATE:11/02/18 STATUS: DIS IN [facility] [address] [place] [address] END OF REPORT
== END 2018-11-02 12:53 | disposition home or self-care (01) | DRG 394 ==
LOC: D.ER 21:39 → D.MS 10-27 03:09
PROVIDERS: Family Medicine; ADMIT Family Medicine
DX: K55.1 Chronic vascular disorders of intestine (principal); F17.213 Nicotine dependence, cigarettes, with withdrawal; K52.9 Noninfective gastroenteritis and colitis, unspecified; E86.0 Dehydration; G35 Multiple sclerosis; Z72.89 Other problems related to lifestyle; F12.90 Cannabis use, unspecified, uncomplicated; K31.89 Other diseases of stomach and duodenum

== ENCOUNTER 2018-11-09 23:46 | Inpatient (IN) | payer MEDICAID ==
[~2018-11-09] VITALS: Ht 165.1 cm; Wt 63.5 kg
[~2018-11-09 23:46] MED LIST changes: +PEPCID AC20 MG PO
[2018-11-10] VITALS (7 sets, daily range): BP systolic 108–127; BP diastolic 61–80; Ht 165.1 cm; Wt 63.5 kg
[2018-11-10 00:23] LABS: BASOPHILS 0.2 % (0-2); EOSINOPHILS 0.6 % (0-7); HEMATOCRIT 29.2 % (42.0-54.0); HEMOGLOBIN 9.7 g/dL (13.5-17.5); IMMATURE GRANULOCYTES 0.3 % (0-5); MCH 31.9 pg (26.0-34.0); MCHC 33.2 g/dL (31.0-37.0); MCV 96.1 fL (80.0-100.0); MEAN PLATELET VOLUME 8.7 fL (7.4-10.4); MONOCYTES 6.4 % (2-11); NEUTROPHILS 80.5 % (40-80); RBC 3.04 10x6/uL (4.20-6.10); RDW 13.1 % (11.5-14.5); WBC 10.3 10x3/uL (4.8-10.8)
[2018-11-10 00:25] LABS: PLATELET COUNT 485 10x3/uL (130-400)
[2018-11-10 00:31] LABS: APPEARANCE CLOUDY (CLEAR); BILIRUBIN NEGATIVE (NEGATIVE); COLOR YELLOW (YELLOW); GLUCOSE NEGATIVE (NEGATIVE); KETONE MODERATE mg/dL (NEGATIVE); NITRITE NEGATIVE (NEGATIVE); PROTEIN NEGATIVE (NEGATIVE); SPECIFIC GRAVITY 1.005 (1.005-1.020)
[2018-11-10 00:32] LABS: AMORPHOUS SEDIMENT <1+ /lpf (NONE SEEN); BACTERIA FEW /hpf (NONE SEEN); EPITHELIAL CELLS 0-5 /hpf (0-5); MUCUS <1+ /lpf (NONE SEEN); RED CELLS - URINE 0-5 /hpf (0-5); WHITE CELLS - URINE 0-5 /hpf (0-5)
[2018-11-10 00:44] LABS: ALBUMIN 3.6 g/dL (3.4-5.0); ALKALINE PHOSPHATASE 71 U/L (46-116); ALT (SGPT) 35 U/L (10-68); AMYLASE - SERUM 108 U/L (25-115); BILIRUBIN - TOTAL 0.43 mg/dL (0.2-1.3); CALC OSMOLALITY 283 mosm/kg (275-300); CALCIUM 8.9 mg/dL (8.5-10.1); CARBON DIOXIDE 27.7 mmol/L (21.0-32.0); CHLORIDE - SERUM 102 mmol/L (98-107); CREATININE - SERUM 0.9 mg/dL (0.6-1.3); GLUCOSE 104 mg/dL (74-106); LIPASE 403 U/L (73-393); POTASSIUM - SERUM 3.7 mmol/L (3.5-5.1); PROTEIN - SERUM 7.4 g/dL (6.4-8.2); SODIUM 142 mmol/L (136-145); TROPONIN-I < 0.017 ng/mL (0.000-0.060); UREA NITROGEN 14 mg/dL (7-18); eGFR NON AFRICAN AMERICAN > 90 mL/min (90-120)
[2018-11-10 19:20] LABS: HEMATOCRIT 30.2 % (42.0-54.0); HEMOGLOBIN 9.6 g/dL (13.5-17.5)
[2018-11-10 19:43] LABS: INR 1.09 (0.85-1.17); PROTIME 13.6 SECONDS (11.6-15.0)
[2018-11-10 23:06] LABS: HEMATOCRIT 28.6 % (42.0-54.0); HEMOGLOBIN 9.1 g/dL (13.5-17.5)
[2018-11-11] VITALS: BP 114/70
[2018-11-11 04:00] VITALS: BP 100/60
[2018-11-11 07:09] LABS: BASOPHILS 0.5 % (0-2); EOSINOPHILS 1.2 % (0-7); HEMOGLOBIN 9.4 g/dL (13.5-17.5); IMMATURE GRANULOCYTES 0.2 % (0-5); LYMPHOCYTES 15.2 % (15-50); MCH 32.1 pg (26.0-34.0); MCHC 32.4 g/dL (31.0-37.0); MONOCYTES 7.6 % (2-11); NEUTROPHILS 75.3 % (40-80); PLATELET COUNT 477 10x3/uL (130-400); RBC 2.93 10x6/uL (4.20-6.10)
[2018-11-11 07:28] LABS: CALC OSMOLALITY 277 mosm/kg (275-300); CALCIUM 7.9 mg/dL (8.5-10.1); CARBON DIOXIDE 21.8 mmol/L (21.0-32.0); CHLORIDE - SERUM 107 mmol/L (98-107); GLUCOSE 62 mg/dL (74-106); SODIUM 141 mmol/L (136-145); UREA NITROGEN 11 mg/dL (7-18); eGFR NON AFRICAN AMERICAN 84 mL/min (90-120)
[2018-11-11 08:49] VITALS: BP 127/78
[2018-11-11 12:35] VITALS: BP 122/75
[2018-11-11 14:41] LABS: HEMOGLOBIN 9.8 g/dL (13.5-17.5)
[2018-11-11 16:39] VITALS: BP 122/72
[2018-11-11 20:00] VITALS: BP 123/77
[2018-11-11 23:15] LABS: HEMATOCRIT 31.6 % (42.0-54.0); HEMOGLOBIN 10.4 g/dL (13.5-17.5)
[2018-11-12] VITALS: BP 134/81
[2018-11-12 04:00] VITALS: BP 115/74
[2018-11-12 06:50] LABS: BASOPHILS 0.2 % (0-2); EOSINOPHILS 0.3 % (0-7); IMMATURE GRANULOCYTES 0.3 % (0-5); LYMPHOCYTES 8.5 % (15-50); MCH 31.3 pg (26.0-34.0); MCHC 32.3 g/dL (31.0-37.0); MEAN PLATELET VOLUME 9.2 fL (7.4-10.4); MONOCYTES 7.7 % (2-11); PLATELET COUNT 452 10x3/uL (130-400); RDW 12.9 % (11.5-14.5); WBC 11.7 10x3/uL (4.8-10.8)
[2018-11-12 06:53] LABS: ALBUMIN 2.8 g/dL (3.4-5.0); ALKALINE PHOSPHATASE 60 U/L (46-116); ALT (SGPT) 20 U/L (10-68); BILIRUBIN - TOTAL 0.51 mg/dL (0.2-1.3); CALC OSMOLALITY 264 mosm/kg (275-300); CALCIUM 8.2 mg/dL (8.5-10.1); CARBON DIOXIDE 25.8 mmol/L (21.0-32.0); CHLORIDE - SERUM 101 mmol/L (98-107); CREATININE - SERUM 0.8 mg/dL (0.6-1.3); POTASSIUM - SERUM 3.4 mmol/L (3.5-5.1); PROTEIN - SERUM 6.1 g/dL (6.4-8.2); SODIUM 133 mmol/L (136-145); UREA NITROGEN 10 mg/dL (7-18); eGFR NON AFRICAN AMERICAN > 90 mL/min (90-120)
[2018-11-12 06:57] LABS: GLUCOSE 106 mg/dL (74-106)
[2018-11-12 07:01] LABS: MCV 96.9 fL (80.0-100.0)
[2018-11-12 09:00] VITALS: BP 118/75
[2018-11-12 14:44] VITALS: BP 100/71
[2018-11-12 16:31] LABS: HEMATOCRIT 31.9 % (42.0-54.0); HEMOGLOBIN 10.5 g/dL (13.5-17.5)
[2018-11-12 18:20] VITALS: BP 113/60
[2018-11-12 20:00] VITALS: BP 110/69
[2018-11-13] VITALS: BP 100/70
[2018-11-13 04:00] VITALS: BP 115/73
[2018-11-13 07:22] LABS: BASOPHILS 0.2 % (0-2); EOSINOPHILS 1.1 % (0-7); HEMATOCRIT 29.3 % (42.0-54.0); HEMOGLOBIN 9.8 g/dL (13.5-17.5); IMMATURE GRANULOCYTES 0.3 % (0-5); LYMPHOCYTES 11.6 % (15-50); MCH 32.1 pg (26.0-34.0); MCHC 33.4 g/dL (31.0-37.0); MCV 96.1 fL (80.0-100.0); MEAN PLATELET VOLUME 8.8 fL (7.4-10.4); MONOCYTES 8.6 % (2-11); NEUTROPHILS 78.2 % (40-80); PLATELET COUNT 387 10x3/uL (130-400); RBC 3.05 10x6/uL (4.20-6.10); RDW 12.8 % (11.5-14.5); WBC 11.7 10x3/uL (4.8-10.8)
[2018-11-13 07:41] LABS: ALBUMIN 2.6 g/dL (3.4-5.0); ALKALINE PHOSPHATASE 62 U/L (46-116); ALT (SGPT) 16 U/L (10-68); BILIRUBIN - TOTAL 0.75 mg/dL (0.2-1.3); CALC OSMOLALITY 270 mosm/kg (275-300); CALCIUM 8.2 mg/dL (8.5-10.1); CARBON DIOXIDE 25.4 mmol/L (21.0-32.0); CHLORIDE - SERUM 102 mmol/L (98-107); CREATININE - SERUM 0.8 mg/dL (0.6-1.3); GLUCOSE 105 mg/dL (74-106); PROTEIN - SERUM 6.4 g/dL (6.4-8.2); SODIUM 136 mmol/L (136-145); UREA NITROGEN 10 mg/dL (7-18); eGFR NON AFRICAN AMERICAN > 90 mL/min (90-120)
[2018-11-13 07:49] LABS: POTASSIUM - SERUM 4.1 mmol/L (3.5-5.1)
[2018-11-13 09:41] VITALS: BP 101/61
[2018-11-13 14:08] VITALS: BP 108/65
[2018-11-13 15:29] LABS: HEMATOCRIT 30.6 % (42.0-54.0); HEMOGLOBIN 10.2 g/dL (13.5-17.5)
[2018-11-13 18:25] VITALS: BP 104/65
[2018-11-13 20:00] VITALS: BP 113/61
[2018-11-13 23:35] LABS: HEMATOCRIT 30.1 % (42.0-54.0); HEMOGLOBIN 9.9 g/dL (13.5-17.5)
[2018-11-14] VITALS: BP 118/70
[2018-11-14 04:00] VITALS: BP 113/67
[2018-11-14 07:27] LABS: BASOPHILS 0.2 % (0-2); HEMOGLOBIN 9.9 g/dL (13.5-17.5); IMMATURE GRANULOCYTES 0.1 % (0-5); LYMPHOCYTES 6.7 % (15-50); MCH 31.7 pg (26.0-34.0); MCV 96.2 fL (80.0-100.0); MEAN PLATELET VOLUME 9.2 fL (7.4-10.4); MONOCYTES 10.6 % (2-11); NEUTROPHILS 81.4 % (40-80); PLATELET COUNT 482 10x3/uL (130-400); RBC 3.12 10x6/uL (4.20-6.10); RDW 12.6 % (11.5-14.5); WBC 11.2 10x3/uL (4.8-10.8)
[2018-11-14 07:35] LABS: ALBUMIN 2.5 g/dL (3.4-5.0); ALKALINE PHOSPHATASE 54 U/L (46-116); ALT (SGPT) 18 U/L (10-68); BILIRUBIN - TOTAL 0.78 mg/dL (0.2-1.3); CALC OSMOLALITY 272 mosm/kg (275-300); CALCIUM 8.5 mg/dL (8.5-10.1); CARBON DIOXIDE 25.6 mmol/L (21.0-32.0); CHLORIDE - SERUM 101 mmol/L (98-107); CREATININE - SERUM 0.7 mg/dL (0.6-1.3); GLUCOSE 97 mg/dL (74-106); POTASSIUM - SERUM 3.9 mmol/L (3.5-5.1); PROTEIN - SERUM 6.5 g/dL (6.4-8.2); SODIUM 137 mmol/L (136-145); UREA NITROGEN 11 mg/dL (7-18); eGFR NON AFRICAN AMERICAN > 90 mL/min (90-120)
[2018-11-14 08:54] VITALS: BP 112/70
[2018-11-14 12:47] VITALS: BP 103/64
[2018-11-14 15:12] LABS: HEMATOCRIT 29.1 % (42.0-54.0); HEMOGLOBIN 9.7 g/dL (13.5-17.5)
--- NOTE | 2018-11-14 16:37 | MORECARE ---
CASE MANAGEMENT DISCHARGE SUMMARY PATIENT: KAREN LONG UNIT: [id number] ADM DATE: 11/10/18 AGE: 48 : 66 SEX: M ROOM/BED: D.2236 AUTHOR: MARIAJOSE SWIFT PHYSICIAN: REFERRING PHYSICIAN: KYLEIGH LAWRENCE MD DATE OF SERVICE: 11/14/18 Discharge Plan Patient Name: KAREN LONG [facility] : 1970 Planned Disposition: Home Anticipated Discharge Date: 11/14/18 Discharge Date: Expected LOS: 4 Initial Reviewer: [email or web address] Initial Review Date: 11/14/2018 Generated: 11/14/18 5:37 pm DCPIA - Discharge Planning Initial Assessment Updated by [email or web address]: Carmen Munoz on 11/14/18 4:34 pm * Is the patient Alert and Oriented? Yes * How many steps to enter\exit or inside your home? 3/0 * PCP Dr. Alcala * Pharmacy [facility] * Preadmission Environment Home Alone * ADLs Independent * Equipment None * List name and contact numbers for known caregivers / representatives who currently or will assist patient after discharge: Alida chufriend - [phone] * Verbal permission to speak to the caregivers and representatives has been obtained from the patient. Yes * Community resources currently utilized None * Additional services required to return to the preadmission environment? No * Can the patient safely return to the preadmission environment? Yes * Has this patient been hospitalized within the prior 30 days at any hospital? Yes Patient Name: KAREN LONG Page 26248 at 1637 All edits/amendments must be made on the electronic document DICTATION DATE: 11/14/18 163 SHOVEL LOGGER: CONNER 11/14/18 1636 RPT#: [id number] DC DATE: STATUS: ADM IN [facility] [address] [place] [address] END OF REPORT
--- NOTE | 2018-11-14 16:45 | MORECARE ---
CASE MANAGEMENT DISCHARGE SUMMARY PATIENT: KAREN LONG UNIT: [id number] ADM DATE: 11/10/18 AGE: 48 : 66 SEX: M ROOM/BED: D.2236 AUTHOR: MARIAJOSE SWIFT PHYSICIAN: REFERRING PHYSICIAN: KYLEIGH LAWRENCE MD DATE OF SERVICE: 11/14/18 Discharge Plan Patient Name: KAREN LONG Facility: [facility]:[place] : 1970 Planned Disposition: Home Anticipated Discharge Date: 11/14/18 Discharge Date: Expected LOS: 4 Initial Reviewer: [email or web address] Initial Review Date: 11/14/2018 Generated: 11/14/18 5:45 pm Comments DCP- Discharge Planning Updated by [email or web address]: Carmen Munoz on 11/14/18 3:[address] Patient Name: KAREN LONG Admission Status: ER Accout number: [id number] Admission Date: 11-10-2018 : 1970 Admission Diagnosis:UNSPECIFIED ABDOMINAL PAIN Attending: KYLEIGH LAWRENCE Current LOS: 4 Anticipated DC Date: 11-14-2018 Planned Disposition: Home Primary Insurance: MEDICAID [place] Discharge Planning Comments: CM met with patient to complete initial dc planning assessment. CM educated patient on the CM role and verbal consent given by patient to complete assessment. Patient lives alone, states he does stay with his girlfriend at night. States his discharge plan is to return home and feels this is a safe discharge. He states he does not have any DME or need any DME. States he does not have any outside community resources assisting in the home. Declines need for home health. He states he was unable to get his prescription because [facility] said his insurance was not working. I called [facility] and spoke with someone in the pharmacy and gave them his policy number. She states that they had the wrong number and when she ran it now, it was working. I informed the patient that the number is working now and to call if he has any trouble again with his prescriptions. CM will continue to follow and assist with discharge planning/needs. Ac/Dc Rewinder: Carmen Munoz DCPIA - Discharge Planning Initial Assessment Updated by [email or web address]: Carmen Munoz on 11/14/18 4:34 pm * Is the patient Alert and Oriented? Yes * How many steps to enter\exit or inside your home? 3/0 * PCP Dr. Alcala * Pharmacy [facility] on [facility] * Preadmission Environment Home Alone * ADLs Independent * Equipment None * List name and contact numbers for known caregivers / representatives who currently or will assist patient after discharge: Alida marie - [phone] * Verbal permission to speak to the caregivers and representatives has been obtained from the patient. Yes * Community resources currently utilized None * Additional services required to return to the preadmission environment? No * Can the patient safely return to the preadmission environment? Yes * Has this patient been hospitalized within the prior 30 days at any hospital? Yes Last DP export: 11/14/18 3:37 p Patient Name: KAREN LONG Page [id number] at 1645 All edits/amendments must be made on the electronic document DICTATION DATE: 11/14/181643 ACOUSTIC ENGINEER: CONNER 11/14/181643 RPT#: [id number] DC DATE: STATUS: ADM IN [facility] [address] [place] [address] END OF REPORT
[2018-11-14 17:33] VITALS: BP 108/75
[2018-11-14 20:00] VITALS: BP 99/68
[2018-11-14 23:09] LABS: HEMATOCRIT 27.4 % (42.0-54.0)
[2018-11-15] VITALS: BP 111/65
[2018-11-15 04:00] VITALS: BP 106/69
[2018-11-15 07:11] LABS: BASOPHILS 0.3 % (0-2); HEMATOCRIT 27.5 % (42.0-54.0); HEMOGLOBIN 8.9 g/dL (13.5-17.5); IMMATURE GRANULOCYTES 0.2 % (0-5); LYMPHOCYTES 13.7 % (15-50); MCH 31.1 pg (26.0-34.0); MCHC 32.4 g/dL (31.0-37.0); MCV 96.2 fL (80.0-100.0); MEAN PLATELET VOLUME 8.9 fL (7.4-10.4); MONOCYTES 9.8 % (2-11); PLATELET COUNT 473 10x3/uL (130-400); RBC 2.86 10x6/uL (4.20-6.10); RDW 12.6 % (11.5-14.5); WBC 9.8 10x3/uL (4.8-10.8)
[2018-11-15 07:58] LABS: ALBUMIN 2.4 g/dL (3.4-5.0); ALKALINE PHOSPHATASE 54 U/L (46-116); ALT (SGPT) 13 U/L (10-68); BILIRUBIN - TOTAL 0.55 mg/dL (0.2-1.3); CALC OSMOLALITY 276 mosm/kg (275-300); CALCIUM 8.1 mg/dL (8.5-10.1); CARBON DIOXIDE 23.8 mmol/L (21.0-32.0); CHLORIDE - SERUM 103 mmol/L (98-107); CREATININE - SERUM 0.7 mg/dL (0.6-1.3); GLUCOSE 100 mg/dL (74-106); POTASSIUM - SERUM 4.4 mmol/L (3.5-5.1); PROTEIN - SERUM 6.3 g/dL (6.4-8.2); SODIUM 139 mmol/L (136-145); UREA NITROGEN 11 mg/dL (7-18); eGFR NON AFRICAN AMERICAN > 90 mL/min (90-120)
[2018-11-15 08:45] VITALS: BP 103/66
[2018-11-15 11:00] LABS: APPEARANCE CLEAR (CLEAR); BILIRUBIN NEGATIVE (NEGATIVE); COLOR YELLOW (YELLOW); GLUCOSE NEGATIVE (NEGATIVE); KETONE NEGATIVE (NEGATIVE); NITRITE NEGATIVE (NEGATIVE); PROTEIN NEGATIVE (NEGATIVE); SPECIFIC GRAVITY 1.015 (1.005-1.020); WHITE CELLS - URINE RARE /hpf (0-5)
[2018-11-15 11:01] LABS: BACTERIA FEW /hpf (NONE SEEN); EPITHELIAL CELLS OCC /hpf (0-5); MUCUS <1+ /lpf (NONE SEEN)
[2018-11-15 13:00] VITALS: BP 100/58; BP 118/77
[2018-11-15 16:45] VITALS: BP 98/63
[2018-11-15 22:03] VITALS: BP 100/51
[2018-11-16 01:06] VITALS: BP 96/63
[2018-11-16 05:43] VITALS: BP 95/59
[2018-11-16 06:08] LABS: BASOPHILS 0.5 % (0-2); EOSINOPHILS 4.9 % (0-7); HEMATOCRIT 28.9 % (42.0-54.0); HEMOGLOBIN 9.2 g/dL (13.5-17.5); IMMATURE GRANULOCYTES 0.2 % (0-5); LYMPHOCYTES 25.2 % (15-50); MCH 31.1 pg (26.0-34.0); MCHC 31.8 g/dL (31.0-37.0); MCV 97.6 fL (80.0-100.0); MONOCYTES 11.4 % (2-11); NEUTROPHILS 57.8 % (40-80); PLATELET COUNT 515 10x3/uL (130-400); RBC 2.96 10x6/uL (4.20-6.10); RDW 12.9 % (11.5-14.5)
[2018-11-16 06:40] LABS: ALBUMIN 2.4 g/dL (3.4-5.0); ALKALINE PHOSPHATASE 50 U/L (46-116); BILIRUBIN - TOTAL 0.37 mg/dL (0.2-1.3); CALC OSMOLALITY 272 mosm/kg (275-300); CALCIUM 8.3 mg/dL (8.5-10.1); CARBON DIOXIDE 27.4 mmol/L (21.0-32.0); CHLORIDE - SERUM 104 mmol/L (98-107); CREATININE - SERUM 0.6 mg/dL (0.6-1.3); GLUCOSE 93 mg/dL (74-106); POTASSIUM - SERUM 4.6 mmol/L (3.5-5.1); PROTEIN - SERUM 6.3 g/dL (6.4-8.2); SODIUM 137 mmol/L (136-145); UREA NITROGEN 9 mg/dL (7-18); eGFR NON AFRICAN AMERICAN > 90 mL/min (90-120)
[2018-11-16 06:41] LABS: ALT (SGPT) 27 U/L (10-68)
[2018-11-16 08:38] VITALS: BP 99/59
[2018-11-16 13:04] VITALS: BP 101/60
[2018-11-16 16:57] VITALS: BP 96/60
[2018-11-16 20:00] VITALS: BP 90/52
[2018-11-17 04:00] VITALS: BP 100/60
[2018-11-17 05:35] LABS: BASOPHILS 0.8 % (0-2); EOSINOPHILS 7.2 % (0-7); HEMATOCRIT 25.7 % (42.0-54.0); HEMOGLOBIN 8.2 g/dL (13.5-17.5); IMMATURE GRANULOCYTES 0.2 % (0-5); MCH 30.6 pg (26.0-34.0); MCHC 31.9 g/dL (31.0-37.0); MCV 95.9 fL (80.0-100.0); MONOCYTES 13.3 % (2-11); NEUTROPHILS 46.5 % (40-80); PLATELET COUNT 480 10x3/uL (130-400); RBC 2.68 10x6/uL (4.20-6.10); RDW 12.9 % (11.5-14.5); WBC 4.9 10x3/uL (4.8-10.8)
[2018-11-17 05:53] LABS: CALC OSMOLALITY 274 mosm/kg (275-300); CALCIUM 8.2 mg/dL (8.5-10.1); CARBON DIOXIDE 25.9 mmol/L (21.0-32.0); CHLORIDE - SERUM 104 mmol/L (98-107); GLUCOSE 92 mg/dL (74-106); POTASSIUM - SERUM 4.4 mmol/L (3.5-5.1); SODIUM 138 mmol/L (136-145); UREA NITROGEN 11 mg/dL (7-18)
[2018-11-17 05:55] LABS: CREATININE - SERUM 0.8 mg/dL (0.6-1.3); eGFR NON AFRICAN AMERICAN > 90 mL/min (90-120)
[2018-11-17] MEDS ORDERED: Biaxin PO (09:17)
[2018-11-17] MEDS ORDERED: AMOXICILLIN500 M1 PO (09:17)
[2018-11-17 09:18] VITALS: BP 92/48
[2018-11-17] MEDS ORDERED: PEPCID AC20 MG PO (09:18)
[2018-11-17] MEDS ORDERED: CARAFATE1 G PO (09:19)
--- NOTE | 2018-11-17 10:05 | MORECARE ---
CASE MANAGEMENT DISCHARGE SUMMARY PATIENT: KAREN LONG UNIT: [id number] ADM DATE: 11/10/18 AGE: 48 : 66 SEX: M ROOM/BED: D.2236 AUTHOR: MARIAJOSE SWIFT PHYSICIAN: REFERRING PHYSICIAN: KYLEIGH LAWRENCE MD DATE OF SERVICE: 11/17/18 Discharge Plan Patient Name: KAREN LONG Facility: [facility]:[place] : 1970 Planned Disposition: Home Anticipated Discharge Date: 11/14/18 Discharge Date: Expected LOS: 4 Initial Reviewer: [email or web address] Initial Review Date: 11/14/2018 Generated: 11/17/18 11:05 am Comments DCP- Discharge Planning Updated by [email or web address]: Carmen Alexander on 11/17/18 8:[address] Received orders for discharge. Patient in agreement to discharge. I told him his new prescriptions have been sent to [facility] on . He declines discharge needs. States he has someone that can pick him up. Home today. CM will continue to follow and assist with discharge planning/needs. DCP- Discharge Planning Updated by [email or web address]: Carmen Danheriberto on 11/14/18 3:[address] Patient Name: KAREN LONG Admission Status: ER Accout number: [id number] Admission Date: 11-10-2018 : 1970 Admission Diagnosis:UNSPECIFIED ABDOMINAL PAIN Attending: KYLEIGH LAWRENCE Current LOS: 4 Anticipated DC Date: 11-14-2018 Planned Disposition: Home Primary Insurance: MEDICAID [place] Discharge Planning Comments: CM met with patient to complete initial dc planning assessment. CM educated patient on the CM role and verbal consent given by patient to complete assessment. Patient lives alone, states he does stay with his girlfriend at night. States his discharge plan is to return home and feels this is a safe discharge. He states he does not have any DME or need any DME. States he does not have any outside community resources assisting in the home. Declines need for home health. He states he was unable to get his prescription because [facility] said his insurance was not working. I called [facility] and spoke with someone in the pharmacy and gave them his policy number. She states that they had the wrong number and when she ran it now, it was working. I informed the patient that the number is working now and to call if he has any trouble again with his prescriptions. CM will continue to follow and assist with discharge planning/needs. Parts Fabricator: Carmen Danheriberto DCPIA - Discharge Planning Initial Assessment Updated by [email or web address]: Carmen Alexander on 11/14/18 4:34 pm * Is the patient Alert and Oriented? Yes * How many steps to enter\exit or inside your home? 3/0 * PCP Dr. Alcala * Pharmacy [facility] on [facility] * Preadmission Environment Home Alone * ADLs Independent * Equipment None * List name and contact numbers for known caregivers / representatives who currently or will assist patient after discharge: Alida chufriend - [phone] * Verbal permission to speak to the caregivers and representatives has been obtained from the patient. Yes * Community resources currently utilized None * Additional services required to return to the preadmission environment? No * Can the patient safely return to the preadmission environment? Yes * Has this patient been hospitalized within the prior 30 days at any hospital? Yes Last DP export: 11/14/18 3:45 p Patient Name: KAREN LONG Page 49992 at 1005 All edits/amendments must be made on the electronic document DICTATION DATE: 11/17/18 1005 OILER BANDER: CONNER 11/17/18 1005 RPT#: [id number] DC DATE: STATUS: ADM IN [facility] [address] [place] [address] END OF REPORT
[2018-11-17 17:09] VITALS: BP 96/57
== END 2018-11-17 17:42 | disposition home or self-care (01) | DRG 381 ==
LOC: D.ER 23:46 → D.MS 11-10 04:23
PROVIDERS: Family Medicine; Internal Medicine Gastroenterology; Internal Medicine Nephrology; ADMIT Family Medicine
PROC: 0DC68ZZ Extirpation of Matter from Stomach, Via Natural or Artificial Opening Endoscopic (ICD-10-PCS; 2018-11-10)
PROC: 0DB98ZX Excision of Duodenum, Via Natural or Artificial Opening Endoscopic, Diagnostic (ICD-10-PCS; principal; 2018-11-10 16:30)
DX: K31.5 Obstruction of duodenum (principal); K55.1 Chronic vascular disorders of intestine; F17.213 Nicotine dependence, cigarettes, with withdrawal; J98.11 Atelectasis; K26.3 Acute duodenal ulcer without hemorrhage or perforation; G35 Multiple sclerosis

== ENCOUNTER 2021-01-24 06:30 | Emergency (ER) | payer BC ==
[~2021-01-24] VITALS: Ht 167.6 cm; Wt 65.9 kg
[~2021-01-24 06:30] MED LIST changes: +AMOXICILLIN500 M1 PO; +Biaxin PO; +CARAFATE1 G PO; +VOLTAREN75 MG PO; +ZANAFLEX4 MG PO
[2021-01-24 06:33] VITALS: BP 130/81; Ht 167.6 cm; Wt 65.9 kg
[2021-01-24] MEDS ORDERED: CEPHALEXIN500 M1 PO (07:08)
== END 2021-01-24 07:37 | disposition home or self-care (01) ==
LOC: D.ER 06:30
DX: S60.511A Abrasion of right hand, initial encounter (principal); X58.XXXA Exposure to other specified factors, initial encounter